=== PATIENT | male | born 1975 | race Caucasian/White ===

== ENCOUNTER 2017-10-05 20:39 | Emergency (ER) | payer OTHER ==
[2017-10-05] MEDS ORDERED: SULFAMETH/TRIMETH DS 800/160 MG TABLET PO STA (20:50)
[2017-10-05] MEDS ORDERED: BUFFERED LIDOCAINE 10 ML SYRINGE SUBQ STA (20:50)
[2017-10-05 20:56] VITALS: BP 158/97
--- NOTE | 2017-10-05 21:06 | ED Physician Documentation ---
History of Present Illness - Stated complaint Stated Complaint: OOZING SKIN - History obtained from History obtained from: Patient - History of Present Illness Timing: Other (He has a history remotely of a large staph abscess. The last few days he has had several small painful abscesses over the posterior neck, left shoulder and left arm pit. No fevers.) Review of Systems Constitutional: denies: Fever, Chills Cardiac: reports: Reviewed and negative Respiratory: reports: Reviewed and negative PD PAST MEDICAL HISTORY - Present Medications Home Medications: Ambulatory Orders Medication Instructions Recorded Confirmed Sulfamethoxazole/Trimethoprim 1 each PO BID 10 Days tablet 10/05/17 [Sulfamethoxazole-Tmp Ds Tablet] PD ED PE NORMAL - Vitals Vital signs reviewed: Yes - General General: Alert and oriented X 3, No acute distress - Derm Derm: Other (He has folliculitis in the back of the neck with one small area of abscess may be dime sized and then another small abscess over the top of the left shoulder and one in the left axilla. None are larger than a dime.) - Neuro Neuro: Alert and oriented X 3, Normal speech Procedures - Abscess I&D (location) neck/back,L axilla Preparation: Alcohol, Lidocaine 1% Incision: Other (There were 4 little abscesses, the back of the neck was needle incised, no drainage. There was a little drainage from the lateral shoulder on the left, that was the one that was cultured, and another one on upper tricep, no drainage there, and a little one that was stab incised in the left axilla with modest drainage.) Departure - Departure Disposition: 01 Home, Self Care Clinical Impression: Folliculitis Condition: Good Record reviewed to determine appropriate education?: Yes Instructions: ED Folliculitis Prescriptions: Sulfamethoxazole/Trimethoprim [Sulfamethoxazole-Tmp Ds Tablet] 1 each PO BID 10 Days tablet Comments: Call your doctor to arrange a follow-up appointment, make the next available appointment. In the interim, return anytime if worse or if new symptoms develop. We are performing a wound culture, the results should be done in 48-72 hours. If antibiotic change is necessary we will call you. Return if worse in the meantime, especially if you develop increased pain, fevers, cannot keep down the medication. Otherwise follow-up with your physician in approximately 2-3 days.
== END 2017-10-05 21:16 | disposition home or self-care (01) ==
LOC: ED 20:39
DX: L73.9 Follicular disorder, unspecified (principal)
CPT/HCPCS: 10061; 87070; 87181; 87205; 99283; A9270